=== PATIENT | female | born 1995 | race American Indian/Alaskan Native ===

== ENCOUNTER 2017-05-12 17:25 | Inpatient (IN) | payer OTHER ==
[2017-05-12 18:18] VITALS: BMI 31.6
[2017-05-12] MEDS ORDERED: AMPICILLIN SODIUM 2 GM VIAL ONE (18:23)
[2017-05-12] MEDS ORDERED: AMPICILLIN - 2 GM in SODIUM CHLORIDE 100 ML IVPB ONE (18:25)
[2017-05-12] MEDS ORDERED: DEXTROSE 5%-LACTATED RINGERS 1,000 ML IV SCH (18:30)
[2017-05-12] MEDS ORDERED: BUTORPHANOL TARTRATE 1 MG/ML VIAL IVPUSH PRN (18:52)
[2017-05-12] MEDS ORDERED: PROMETHAZINE HCL 25 MG/1 ML VIAL IVPB PRN (18:52)
--- NOTE | 2017-05-12 18:52 | HP ---
Past Medical History - Admission Chief Complaint: Labor pain History of Present Illness: 22 yo @ 40 weeks gestation, EDC 05/12/17, admitted for labor pain. She denies any vaginal bleeding nor rupture of membrane. History Source: Patient Limitations to Obtaining History: No Limitations - Past Medical History ...: 2 ...Para: 1 ...Term: 1 ...: 0 ...Spon : 0 ...Induced : 0 ...Multiple Gestation: 0 ...LMP: 08/05/16 ... Weeks Gestation by Dates: 40.0 ...EDC by Dates: 05/12/17 ...EDC by Sono: 05/17/17 - Past Surgical History Past Surgical History: Yes: None Hx Myomectomy: No Hx Transabdominal Cerclage: No - Smoking History Smoking history: Never smoked Have you smoked in the past 12 months: No Aproximately how many cigarettes per day: 0 - Alcohol/Substance Use Hx Alcohol Use: No History of Substance Use: reports: None - Social History Usual Living Arrangement: Yes: With Spouse History of Recent Travel: No Home Medications - Allergies Allergies/Adverse Reactions: Allergies Allergy/AdvReac Type Severity Reaction Status Date / Time No Known Allergies Allergy Verified 05/12/17 18:05 - Home Medications Home Medications: Ambulatory Orders Vitamins (Sjr) - 1 tab PO DAILY 05/12/17 Family Disease History - Family Disease History Family History: Unremarkable Review of Systems - Review of Systems Constitutional: reports: No Symptoms Eyes: reports: No Symptoms HENT: reports: No Symptoms Neck: reports: No Symptoms Cardiovascular: reports: No Symptoms Respiratory: reports: No Symptoms Gastrointestinal: reports: No Symptoms Genitourinary: reports: Pain Breasts: reports: No Symptoms Reported Musculoskeletal: reports: No Symptoms Integumentary: reports: No Symptoms Neurological: reports: No Symptoms Endocrine: reports: No Symptoms Hematology/Lymphatic: reports: No Symptoms Psychiatric: reports: No Symptoms Pain Intensity: 3 Physical Exam - Maternity Vital Signs: Vital Signs Temperature 97.9 F 05/12/17 18:00 Pulse Rate 117 H 05/12/17 18:00 Respiratory Rate 18 05/12/17 18:00 Blood Pressure 115/78 05/12/17 18:00 O2 Sat by Pulse Oximetry (%) Constitutional: Yes: Well Nourished Eyes: Yes: Conjunctiva Clear HENT: Yes: Atraumatic Neck: Yes: Supple Cardiovascular: Yes: Regular Rate and Rhythm Lungs: Clear to auscultation - Abdominal Exam/OB Number of Fetuses: Single Presentation: Vertex - Vaginal Exam/OB Vaginal Bleediing: No Dilatation (cm): 5 Effacement (%): 70 Amniotic Membrane Status: Intact - Physical Exam ...Motor Strength: WNL Psychiatric: Yes: Alert, Oriented Problem List - Problems (1) Pain during labor Code(s): O99.89 - OTH DISEASES AND CONDITIONS COMPL PREG/CHLDBRTH; R52 - PAIN, UNSPECIFIED Assessment/Plan IUP @ 40 weeks Labor pain Admit to L&D Anticipate
[2017-05-12] MEDS ORDERED: ELECTROLYTE-148 SOLN 1,000 ML IV SCH (19:00)
[2017-05-12 20:02] LABS: BASO % 0.2 % (0-2.0); EOS % 1.1 % (0-4.5); HEMATOCRIT 36.7 % (32.4-45.2); HEMOGLOBIN 12.2 GM/dL (10.7-15.3); LYMPH % 26.2 % (8-40); MCH 28.4 pg (25.7-33.7); MCHC 33.3 g/dl (32.0-36.0); MEAN CELL VOLUME 85.3 fl (80-96); NEUT % 66.5 % (42.8-82.8); PLATELET COUNT 194 K/MM3 (134-434); RBC 4.31 M/mm3 (3.60-5.2); RDW 14.5 % (11.6-15.6); WHITE BLOOD COUNT 8.5 K/mm3 (4.0-10.0)
[2017-05-12 20:17] LABS: INR 0.99 (0.82-1.09); PROTHROMBIN TIME (PATIENT) 11.2 SEC (9.98-11.88)
[2017-05-12 20:20] LABS: ACTIVATED PTT 25.2 SECONDS (26.9-34.4)
[2017-05-12 20:25] LABS: ANION GAP 8 (8-16); BLOOD UREA NITROGEN 5 mg/dL (7-18); CALCIUM 8.3 mg/dL (8.5-10.1); CHLORIDE 104 mmol/L (98-107); CO2 26 mmol/L (21-32); CREATININE 0.6 mg/dL (0.55-1.02); GLUCOSE,RANDOM 144 mg/dL (74-106); POTASSIUM 4.5 mmol/L (3.5-5.1); SODIUM 138 mmol/L (136-145)
[2017-05-12] MEDS ORDERED: OXYTOCIN 30 UNITS in 0.9% NS 30 UNIT/500 ML INFUS.BAG IVPB SCH (22:15)
[2017-05-12] MEDS ORDERED: OXYTOCIN 15 UNITS/ LR 250 ML 15 UNIT/250 ML INFUS.BAG IVPB SCH (22:15)
[2017-05-12] MEDS: AMPICILLIN - 1 GM in SODIUM CHLORIDE 100 ML IVPB SCH (22:25)
[2017-05-12] MEDS ORDERED: OXYTOCIN 20 UNITS in 0.9% NS 20 UNIT/1,000 ML INFUS.BAG IV ONE (22:39)
[2017-05-12] MEDS ORDERED: AMPICILLIN SODIUM 1 GM VIAL ONE (23:03)
[2017-05-13] MEDS ORDERED: BUTORPHANOL TARTRATE 1 MG/ML VIAL ONE ×3 (00:37→02:47)
[2017-05-13] MEDS ORDERED: PROMETHAZINE HCL 25 MG/1 ML VIAL ONE (00:38)
[2017-05-13] MEDS: AMPICILLIN - 1 GM in SODIUM CHLORIDE 100 ML IVPB SCH ×4 (02:25→17:18)
[2017-05-13] MEDS ORDERED: AMPICILLIN SODIUM 1 GM VIAL ONE (02:47)
[2017-05-13] MEDS ORDERED: OXYTOCIN 20 UNITS in 0.9% NS 20 UNIT/1,000 ML INFUS.BAG IV ONE (03:16)
[2017-05-13] MEDS ORDERED: LIDOCAINE HCL 1% PRESERVATIVE FREE - 30ML VIAL ONE (03:17)
[2017-05-13] MEDS ORDERED: BISACODYL 10 MG SUPP.RECT RC PRN (03:58)
[2017-05-13] MEDS ORDERED: WITCH HAZEL 50% (TUCKS) 40 PAD/JAR PAD TP PRN (03:58)
[2017-05-13] MEDS ORDERED: BENZOCAINE 20% 57 GM BOTTLE TP PRN (03:58)
[2017-05-13] MEDS ORDERED: BENZOCAINE 28 GM HEMORRHOIDAL OINTMENT TP PRN (03:58)
[2017-05-13] MEDS ORDERED: METHYLERGONOVINE MALEATE 0.2 MG/1 ML AMP IM PRN (03:58)
[2017-05-13] MEDS ORDERED: OXYTOCIN 20 UNITS in 0.9% NS 20 UNIT/1,000 ML INFUS.BAG IV SCH (04:00)
--- NOTE | 2017-05-13 04:06 | PN ---
Delivery - Delivery Vaginal Delivery: Spontaneous Type of Anesthesia: Local Episiotomy/Laceration: Midline EBL (cc): 400 Delivery, Single - Feeding Plan Initial Plan: Elected not to breastfeed exclusively throughout hospitalization Remarks - Remarks Remarks: Normal spontaneous vaginal delivery of a live infant boy over midline episiotomy. Nose / Oropharynx suctioned @ perineum. Cord clamped and cut. Placenta expelled spontaneously intact. Midline episiotomy repaired with 2.0Chromic.
[2017-05-13] MEDS ORDERED: IBUPROFEN 600 MG TABLET (FP) PO ONE (07:38)
[2017-05-13] MEDS ORDERED: ACETAMINOPHEN 325 MG TABLET (FP) ONE (07:39)
[2017-05-13] MEDS: IBUPROFEN 600 MG TABLET (FP) PO PRN ×2 (07:49→17:22)
[2017-05-13] MEDS: ACETAMINOPHEN 325 MG TABLET (FP) PO PRN ×2 (07:50→17:21)
[2017-05-13] MEDS: FERROUS SO4 325 MG TABLET (FP) PO SCH ×3 (10:12→17:21)
[2017-05-13] MEDS: PRENATAL VITAMINS W/ FOLIC ACID TABLET (FP) PO SCH (10:12)
[2017-05-14] MEDS: FERROUS SO4 325 MG TABLET (FP) PO SCH ×3 (08:08→17:37)
[2017-05-14] MEDS: IBUPROFEN 600 MG TABLET (FP) PO PRN ×2 (08:11→21:35)
[2017-05-14 09:05] LABS: BASO % 0.3 % (0-2.0); EOS % 1.9 % (0-4.5); HEMOGLOBIN 9.6 GM/dL (10.7-15.3); LYMPH % 33.1 % (8-40); MCH 28.2 pg (25.7-33.7); MCHC 33.1 g/dl (32.0-36.0); MEAN PLT VOLUME 9.5 fl (7.5-11.1); MONO % 7.5 % (3.8-10.2); NEUT % 57.2 % (42.8-82.8); PLATELET COUNT 156 K/MM3 (134-434); RBC 3.41 M/mm3 (3.60-5.2)
--- NOTE | 2017-05-14 09:15 | PN ---
Post Progress Note - Subjective Subjective: 22 yo Para 2 status post vaginal delivery, seen and evaluated. Doing well. Post Day: 1 Type of Delivery: Vital Signs: Vital Signs Temperature 98.3 F 05/14/17 09:03 Pulse Rate 80 05/14/17 09:03 Respiratory Rate 20 05/14/17 09:03 Blood Pressure 134/72 05/14/17 09:03 O2 Sat by Pulse Oximetry (%) 97 05/13/17 04:30 Breast Exam: Yes: Soft Uterus: Yes: Fundus Firm Abdomen/GI: Yes: Abdomen soft Lochia: Yes: Rubra Lochia, amount: Moderate Extremities: Yes: Calves non-tender Perineum: Yes: Episiotomy (Healing) Activity: Ambulating - Labs Labs: CBC WBC 9.0 K/mm3 (4.0-10.0) 05/14/17 07:30 RBC 3.41 M/mm3 (3.60-5.2) L D 05/14/17 07:30 Hgb 9.6 GM/dL (10.7-15.3) L D 05/14/17 07:30 Hct 29.0 % (32.4-45.2) L D 05/14/17 07:30 MCV 85.0 fl (80-96) 05/14/17 07:30 MCH 28.2 pg (25.7-33.7) 05/14/17 07:30 MCHC 33.1 g/dl (32.0-36.0) 05/14/17 07:30 RDW 15.0 % (11.6-15.6) 05/14/17 07:30 Plt Count 156 K/MM3 (134-434) 05/14/17 07:30 MPV 9.5 fl (7.5-11.1) 05/14/17 07:30 Neutrophils % 57.2 % (42.8-82.8) 05/14/17 07:30 Lymphocytes % 33.1 % (8-40) D 05/14/17 07:30 Monocytes % 7.5 % (3.8-10.2) 05/14/17 07:30 Eosinophils % 1.9 % (0-4.5) 05/14/17 07:30 Basophils % 0.3 % (0-2.0) 05/14/17 07:30 Problem List - Problems (1) Pain during labor Code(s): O99.89 - OTH DISEASES AND CONDITIONS COMPL PREG/CHLDBRTH; R52 - PAIN, UNSPECIFIED (2) Status post normal vaginal delivery Code(s): PHN5830 - Assessment/Plan Status post vaginal delivery Stable Continue routine care
[2017-05-14] MEDS ORDERED: DIPHTH,PERTUSS(ACELL),TET 0.5 ML DISP.SYRIN IM ONE (10:00)
[2017-05-14] MEDS: PRENATAL VITAMINS W/ FOLIC ACID TABLET (FP) PO SCH (10:05)
[2017-05-14] MEDS: AMPICILLIN - 1 GM in SODIUM CHLORIDE 100 ML IVPB SCH ×2 (17:36→23:08)
[2017-05-14] MEDS: ACETAMINOPHEN 325 MG TABLET (FP) PO PRN (21:35)
[2017-05-14 21:40] VITALS: TEMP 97.5
[2017-05-14] MEDS ORDERED: SENNOSIDES/DOCUSATE COMBO (SENNA PLUS) TABLET (UD) PO PRN (22:00)
[2017-05-15] MEDS: FERROUS SO4 325 MG TABLET (FP) PO SCH (07:50)
[2017-05-15] MEDS: PRENATAL VITAMINS W/ FOLIC ACID TABLET (FP) PO SCH (09:36)
[2017-05-15 10:34] VITALS: BP 104/59; PULSE 88
--- NOTE | 2017-05-15 11:54 | DS ---
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: Vital Signs Temperature 97.5 F L 05/14/17 21:39 Pulse Rate 88 05/15/17 10:00 Respiratory Rate 20 05/15/17 10:00 Blood Pressure 104/59 05/15/17 10:00 O2 Sat by Pulse Oximetry (%) 97 05/13/17 04:30 Constitutional: Yes: Well Nourished Eyes: Yes: Conjunctiva Clear HENT: Yes: Atraumatic Neck: Yes: Supple Cardiovascular: Yes: Regular Rate and Rhythm Respiratory: Yes: Regular Gastrointestinal: Yes: Normal Bowel Sounds External Genitalia: Yes: Normal Vaginal Exam: Yes: Normal Cervix: Yes: Normal Uterus: Yes: Firm ....Post : Yes: Uterus firm, Moderate lochia serosa Breast(s): Yes: WNL Musculoskeletal: Yes: WNL Extremities: Yes: WNL Neurological: Yes: Alert, Oriented ...Motor Strength: WNL Psychiatric: Yes: Alert, Oriented Labs: CBC, BMP 05/14/17 07:30 05/12/17 19:30 Delivery - Delivery Vaginal Delivery: Spontaneous Type of Anesthesia: Local Episiotomy/Laceration: Midline EBL (cc): 400 Delivery, Single - Stages of Labor Date 1st Stage Initiatied: 05/13/17 Time 1st Stage Initiated: 19:00 Date 2nd Stage Initiated: 05/13/17 Time 2nd Stage Initiated: 03:00 Date of Delivery: 05/13/17 Time of Delivery: 03:27 Time Placenta Delivered: 03:40 - 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 Gender: Male Weight: 7 lb 7 oz Position: Right, OA Total Hours ROM (Hrs/Mins): 5H27M - 1 Minute Total Score: 9 5 Minutes Total Score: 9 - [place] Feeding Plan Initial Plan: Elected not to breastfeed exclusively throughout hospitalization Discharge Summary Reason For Visit: LABOR Current Active Problems Pain during labor (Acute) Status post normal vaginal delivery (Acute) Procedures: Principal: Spontaneous vaginal delivery Hospital Course: Routine care Condition: Good - Instructions Diet, Activity, Other Instructions: Regular diet No douching, no sexual intercourse x 6 weeks F/U in clinic in 6 weeks Disposition: HOME - Home Medications Comprehensive Discharge Medication List: Ambulatory Orders Vitamins (Sjr) - 1 tab PO DAILY 05/12/17
== END 2017-05-15 13:24 | disposition home or self-care (01) | DRG 560 ==
LOC: JDEL 17:25 → JLDR 17:50 → J3W 05-13 13:39
PROVIDERS: ADMIT Obstetrics & Gynecology; ATTEND Obstetrics & Gynecology
PROC: 10E0XZZ Delivery of Products of Conception, External Approach (ICD-10-PCS; principal; 2017-05-13)
PROC: 0W8NXZZ Division of Female Perineum, External Approach (ICD-10-PCS; 2017-05-13)
DX: O80 Encounter for full-term uncomplicated delivery (principal); Z3A.40 40 weeks gestation of pregnancy; Z37.0 Single live birth
CPT/HCPCS: 36415; 59409; 80048; 85025; 85610; 85730; 86593; 86850; 86900; 86901; 90715

== ENCOUNTER 2017-11-30 11:17 | Day surgery (SDC) | payer OTHER ==
[2017-11-30 13:25] VITALS: TEMP 98
[2017-11-30 14:12] VITALS: BP 107/75; PULSE 73
--- NOTE | 2017-12-01 13:44 | PATH ---
Surgical Pathology Report Patient Name: KAUSHAL MONTANA [facility]. Rec. #: [id number] /Age/Gender: 1995 (Age: 22) / F Account: [id number] Location: [facility]SU-ENDOSCOPY Taken: 11/30/2017 Received: 11/30/2017 Reported: 12/01/2017 Physicians: Wilbert Aceves M.D. Specimen(s) Received A: BX 2ND PORTION DUODENUM B: BX ANTRUM AND BODY C: BX TERMINAL ILEUM D: ASCENDING COLON E: BX DESCENDING COLON F: BX SIGMOID G: BX RECTUM Clinical History Abdominal pain, constipation Postoperative diagnosis: Gastritis, change in bowel habits Final Diagnosis A. DUODENUM, SECOND PORTION, BIOPSY: DUODENAL MUCOSA WITH MODERATE ACUTE AND CHRONIC DUODENITIS. B. STOMACH, ANTRUM AND BODY, BIOPSY: GASTRIC ANTRAL AND BODY MUCOSA WITH SEVERE CHRONIC ACTIVE GASTRITIS. IMMUNOHISTOCHEMICAL STAIN FOR H. PYLORI IS POSITIVE (NUMEROUS). C. TERMINAL ILEUM, BIOPSY: ILEAL MUCOSA WITHOUT SIGNIFICANT PATHOLOGIC FINDINGS. D. ASCENDING COLON, BIOPSY: COLONIC MUCOSA WITH PROMINENT LYMPHOID AGGREGATES. E. DESCENDING COLON, BIOPSY: COLONIC MUCOSA WITH PROMINENT LYMPHOID AGGREGATES. F. SIGMOID COLON, BIOPSY: COLONIC MUCOSA WITH PROMINENT LYMPHOID AGGREGATES. G. RECTUM, BIOPSY: COLONIC MUCOSA WITH PROMINENT LYMPHOID AGGREGATES. Electronically Signed Freya Lewis M.D. Gross Description A. Received in formalin, labeled "biopsy second portion of duodenum" are 2 ignacio, irregular portions of soft tissue measuring 0.3 and 0.4 cm. in greatest dimension. The specimens are submitted in toto in one cassette. B. Received in formalin, labeled "antrum and body" are 2 ignacio, irregular portions of soft tissue measuring 0.4 and 0.5 cm. in greatest dimension. The specimens are submitted in toto in one cassette. C. Received in formalin, labeled "terminal ileum" are 2 ignacio, irregular portions of soft tissue measuring 0.3 and 0.5 cm. in greatest dimension. The specimens are submitted in toto in one cassette. D. Received in formalin, labeled "ascending colon" are 2 ignacio, irregular portions of soft tissue measuring 0.4 and 0.5 cm. in greatest dimension. The specimens are submitted in toto in one cassette. E. Received in formalin, labeled "descending colon" are 2 ignacio, irregular portions of soft tissue measuring 0.3 and 0.5 cm. in greatest dimension. The specimens are submitted in toto in one cassette. F. Received in formalin, labeled "sigmoid colon" are 2 ignacio, irregular portions of soft tissue measuring 0.2 and 0.3 cm. in greatest dimension. The specimens are submitted in toto in one cassette. G. Received in formalin, labeled "rectum" is a ignacio, irregular portion of soft tissue measuring 1.2 cm. in greatest dimension. The specimen is submitted in toto in one cassette. [facility]
== END 2017-11-30 14:20 | disposition home or self-care (01) ==
LOC: JASU-ENDO 11:17
PROVIDERS: ATTEND Internal Medicine Gastroenterology
PROC: 0DB68ZX Excision of Stomach, Via Natural or Artificial Opening Endoscopic, Diagnostic (ICD-10-PCS; 2017-11-30)
PROC: 0DB98ZX Excision of Duodenum, Via Natural or Artificial Opening Endoscopic, Diagnostic (ICD-10-PCS; principal; 2017-11-30 12:45)
DX: K29.60 Other gastritis without bleeding (principal)
CPT/HCPCS: 84703; 88305-TC; 88342-TC